=== PATIENT | female | born 1985 | race Caucasian/White ===

== ENCOUNTER 2018-12-14 17:02 | Emergency (ER) | payer MEDICARE ==
[~2018-12-14] VITALS: Ht 162.6 cm; Wt 65.8 kg
[2018-12-14] MEDS ORDERED: VENLAFAXINE H37.5 MG PO (17:09)
[2018-12-14] MEDS ORDERED: PRAZOSIN HCL1 MG PO (17:10)
[2018-12-14] MEDS ORDERED: ADDERALL XR 3030 MG PO (17:10)
[2018-12-14] MEDS ORDERED: AMOXICILLIN500 MG PO (17:36)
[2018-12-14] MEDS ORDERED: INDOMETHACIN25 MG PO (17:36)
--- OUTSIDE RECORDS SUMMARY | 2018-12-14 18:06 | XMS ---
PreManage Notification: VICENTE ARANDA Security Assistant To The Vice President Events No recent Security Events currently on file [facility] There are no care providers on record at this time. [facility] has no Care Guidelines for this patient. Darrel VISIT COUNT (12 MO.) 1 ED[facility] TOTAL 1 NOTE: Visits indicate total known visits. ED/C VISIT TRACKING (12 MO.) 12/14/2018 17:05 [facility] [place] TYPE: Emergency COMPLAINT: - MOUTH PAIN INPATIENT VISIT TRACKING (12 MO.) No inpatient visits to display in this time frame [email or web address]
== END 2018-12-14 17:45 | disposition home or self-care (01) ==
LOC: ED 17:02
DX: G89.29 Other chronic pain (principal); K08.89 Other specified disorders of teeth and supporting structures; F43.10 Post-traumatic stress disorder, unspecified; F90.9 Attention-deficit hyperactivity disorder, unspecified type; F17.200 Nicotine dependence, unspecified, uncomplicated; Z79.899 Other long term (current) drug therapy; Z88.8 Allergy status to other drugs, medicaments and biological substances
CPT/HCPCS: 99282